=== PATIENT | female | born 1990 | race Caucasian/White ===

== ENCOUNTER 2018-08-25 04:16 | Emergency (ER) | payer OTHER ==
[2018-08-25] MEDS: LIDOCAINE/MYLANTA 40 ML BTL PO (05:02)
[2018-08-25] MEDS: KETOROLAC 30 MG INJ IM (05:03)
[2018-08-25 05:04] LABS: ADD MAN DIFF? NO
[2018-08-25 05:05] LABS: WHITE BLOOD COUNT 11.6 10^3/ul (4.8-10.8)
[2018-08-25 05:05] LABS: BASOPHILS % 0.3 % (0.0-2.0); EOSINOPHILS # 0.1 10^3/ul (0.0-0.5); EOSINOPHILS % 0.9 % (0.0-7.0); HEMATOCRIT 33.7 % (37.0-47.0); HEMOGLOBIN 10.6 g/dl (12.0-16.0); LYMPHOCYTES # 2.3 10^3/ul (0.8-2.9); LYMPHOCYTES % 19.8 % (15.0-51.0); MEAN CORPUSCULAR HEMOGLOBIN 25.2 pg (29.0-33.0); MEAN CORPUSCULAR HGB CONC 31.5 g/dl (32.0-37.0); MEAN PLATELET VOLUME 10.1 fl (7.4-10.4); MONOCYTE # 0.7 10^3/ul (0.3-0.9); MONOCYTES % 5.7 % (0.0-11.0); NEUTROPHIL # 8.5 10^3/ul (1.6-7.5); NEUTROPHILS % 72.7 % (39.0-77.0); PLATELET COUNT 339 10^3/UL (140-415); RED BLOOD COUNT 4.21 10^6/ul (4.20-5.40); RED CELL DISTRIBUTION WIDTH 14.1 % (11.5-14.5)
[2018-08-25 05:11] LABS: ADD UMIC YES; UR ASCORBIC ACID NEGATIVE (NEGATIVE); UR BILIRUBIN (Dip) NEGATIVE (NEGATIVE); UR BLOOD (Dip) 2+ mg/dL (NEGATIVE); UR CLARITY CLEAR (CLEAR); UR COLOR STRAW (YELLOW); UR GLUCOSE (Dip) NEGATIVE (NEGATIVE); UR KETONES (Dip) NEGATIVE (NEGATIVE); UR LEUKOCYTE ESTERASE (Dip) NEGATIVE Leu/ul (NEGATIVE); UR NITRITE (Dip) NEGATIVE (NEGATIVE); UR RBC 0 /HPF (0-5); UR SPECIFIC GRAVITY (Dip) 1.016 (1.003-1.030); UR TOTAL PROTEIN (Dip) NEGATIVE (NEGATIVE); UR UROBILINOGEN (Dip) NEGATIVE (NEGATIVE); UR WBC 1 /HPF (0-5)
[2018-08-25] MEDS: ONDANSETRON (ODT) 4 MG TAB ODT (05:16)
[2018-08-25 05:24] LABS: ALANINE AMINOTRANSFERASE 18 IU/L (13-69); ALBUMIN/GLOBULIN RATIO 1.08; ALKALINE PHOSPHATASE 79 IU/L (42-121); ANION GAP 9 (5-13); ASPARTATE AMINO TRANSFERASE 17 IU/L (15-46); BILIRUBIN,INDIRECT 0.3 mg/dl (0-1.1); BILIRUBIN,TOTAL 0.3 mg/dl (0.2-1.3); BLOOD UREA NITROGEN 12 mg/dl (7-20); CALCIUM 9.6 mg/dl (8.4-10.2); CARBON DIOXIDE 27 mmol/L (21-31); CHLORIDE 102 mmol/L (97-110); Estimated GFR > 60 mL/min (>60); GLUCOSE 127 mg/dl (70-220); LIPASE 79 U/L (23-300); POTASSIUM 3.9 mmol/L (3.5-5.1); SODIUM 138 mmol/L (135-144); TOTAL PROTEIN 7.7 g/dl (6.1-8.1)
== END 2018-08-25 06:05 | disposition home or self-care (01) ==
LOC: FTE 04:16
DX: R10.13 Epigastric pain (principal); R11.10 Vomiting, unspecified
CPT/HCPCS: 36415; 80053; 81001; 81025; 83690; 85025; 96372; 99284-25